=== PATIENT | female | born 1980 | race Caucasian/White ===

== ENCOUNTER 2016-08-09 02:40 | Emergency (ER) | payer OTHER ==
[2016-08-09] MEDS ORDERED: CYCLOBENZAPRINE 10 MG TAB ONE (03:17)
[2016-08-09] MEDS ORDERED: KETOROLAC 60 MG/2 ML VIAL IM ONE (03:17)
== END 2016-08-09 03:54 | disposition home or self-care (01) ==
LOC: ER 02:40
DX: S39.012A Strain of muscle, fascia and tendon of lower back, initial encounter (principal); F17.210 Nicotine dependence, cigarettes, uncomplicated
CPT/HCPCS: 96372